=== PATIENT | male | born 1940 | race Caucasian/White ===

== ENCOUNTER 2016-11-08 10:51 | Emergency (ER) | payer MEDICARE, BC ==
[~2016-11-08 10:51] MED LIST: AMLODIPINE5 MG PO; BISOPROLOL AND1 TA1 PO; ENALAPRIL MALEA20 MG PO; GOOD SENSE ASPI81 M1 PO; HCTZ PO; LEVAQUIN 5500 MG/TA1 PO; LEVOTHYROXIN0.075 MG PO; OMNICEF 300MG300 MG PO; PRAVASTATIN40 MG PO; PREDNISONE10 MG PO; ZITHROMAX Z PA250 MG PO; ZYRTEC10 M3 PO
[2016-11-08] MEDS ORDERED: AMBIEN10 MG PO (11:00)
== END 2016-11-08 15:10 | disposition home or self-care (01) ==
LOC: ED 10:51
DX: R55 Syncope and collapse (principal); R07.9 Chest pain, unspecified; Z95.0 Presence of cardiac pacemaker; I25.10 Atherosclerotic heart disease of native coronary artery without angina pectoris; I10 Essential (primary) hypertension; E78.5 Hyperlipidemia, unspecified; Z79.82 Long term (current) use of aspirin
CPT/HCPCS: J2060; J7030; Q9967

== ENCOUNTER → 2017-04-19 | Outpatient (CLI) | payer MEDICARE, BC ==
[2016-11-08 15:10] VITALS: BP 154/78
[~2017-04-19] MED LIST changes: +AMBIEN10 MG PO
== END ==
LOC: LAB 11:08
DX: I10 Essential (primary) hypertension (principal); E78.2 Mixed hyperlipidemia; R20.2 Paresthesia of skin; Z12.5 Encounter for screening for malignant neoplasm of prostate; E03.4 Atrophy of thyroid (acquired); N52.03 Combined arterial insufficiency and corporo-venous occlusive erectile dysfunction; Z12.11 Encounter for screening for malignant neoplasm of colon; R41.3 Other amnesia

== ENCOUNTER → 2018-04-18 | Outpatient (CLI) | payer MEDICARE, BC ==
[2016-11-08 15:10] VITALS: BP 154/78
[2018-04-18 09:38] LABS: EOS # 0.2 (0.04-0.40); EOS % 3.2 % (0.0-4.0); HEMATOCRIT 40.1 % (42.0-52.0); HEMOGLOBIN 13.4 g/dL (13.5-18.0); LYMPH# 1.8 (1.50-4.00); MEAN CELL VOLUME 94 fl (78-100); MEAN CORPUSCULAR HEMOGLOBIN 32 pg (27-31); MEAN CORPUSCULAR HGB CONC 33 g/dL (33-37); MEAN PLATELET VOLUME 10.8 fl (7.4-10.4); MONO # 0.8 (0.20-0.80); NEU # 3.8 (1.40-6.50); PLATELET COUNT 190 K/mm3 (130-400); RED BLOOD COUNT 4.26 M/mm3 (4.20-5.60); RED CELL DISTRIBUTION WIDTH 14.3 % (11.5-14.5); WHITE BLOOD COUNT 6.7 K/mm3 (4.8-10.8)
[2018-04-18 09:56] LABS: ALBUMIN 4.1 g/dL (3.5-5.0); CALCIUM 9.1 mg/dL (8.4-10.2); POTASSIUM 3.9 mmol/L (3.6-5.0); TOTAL BILIRUBIN 1.3 mg/dL (0.2-1.3); TOTAL PROTEIN 7.1 g/dL (6.3-8.2)
[2018-04-18 11:12] LABS: ERYTHROCYTE SEDIMENTATION RATE 3 mm/hr (0-20)
[2018-04-18 23:59] LABS: TESTOSTERONE 478 ng/dL (221-716)
== END ==
LOC: LAB 09:22
PROVIDERS: Internal Medicine
DX: Z12.5 Encounter for screening for malignant neoplasm of prostate (principal); Z12.11 Encounter for screening for malignant neoplasm of colon; N52.9 Male erectile dysfunction, unspecified; I10 Essential (primary) hypertension; E78.5 Hyperlipidemia, unspecified; R20.2 Paresthesia of skin; E03.9 Hypothyroidism, unspecified

== ENCOUNTER → 2018-08-21 | Outpatient (CLI) | payer MEDICARE, BC ==
[2016-11-08 15:10] VITALS: BP 154/78
== END ==
LOC: LAB 10:03
DX: E03.9 Hypothyroidism, unspecified (principal)

== ENCOUNTER → 2019-02-19 | Outpatient (CLI) | payer MEDICARE, BC ==
[2016-11-08 15:10] VITALS: BP 154/78
[2019-02-19 12:10] LABS: EOS # 0.2 (0.04-0.40); EOS % 3.2 % (0.0-4.0); HEMATOCRIT 40.1 % (42.0-52.0); HEMOGLOBIN 13.3 g/dL (13.5-18.0); LYMPH# 1.6 (1.50-4.00); MEAN CELL VOLUME 93 fl (78-100); MEAN CORPUSCULAR HEMOGLOBIN 31 pg (27-31); MEAN CORPUSCULAR HGB CONC 33 g/dL (33-37); MEAN PLATELET VOLUME 11.1 fl (7.4-10.4); MONO # 0.8 (0.20-0.80); PLATELET COUNT 178 K/mm3 (130-400); RED BLOOD COUNT 4.33 M/mm3 (4.20-5.60); RED CELL DISTRIBUTION WIDTH 14.4 % (11.5-14.5); WHITE BLOOD COUNT 6.5 K/mm3 (4.8-10.8)
[2019-02-19 12:17] LABS: POTASSIUM 3.7 mmol/L (3.5-5.1)
[2019-02-19 12:18] LABS: ALBUMIN 3.9 g/dL (3.4-4.8)
[2019-02-19 12:19] LABS: CALCIUM 9.3 mg/dL (8.3-10.5)
[2019-02-19 12:20] LABS: TOTAL PROTEIN 6.9 g/dL (6.2-8.1)
[2019-02-19 12:22] LABS: TOTAL BILIRUBIN 1.2 mg/dL (0.2-1.2)
[2019-02-19 13:10] LABS: ERYTHROCYTE SEDIMENTATION RATE 4 mm/hr (0-20)
== END ==
LOC: LAB 11:51
PROVIDERS: Internal Medicine
DX: Z12.11 Encounter for screening for malignant neoplasm of colon (principal); I10 Essential (primary) hypertension; E78.5 Hyperlipidemia, unspecified; E03.9 Hypothyroidism, unspecified; R41.3 Other amnesia

== ENCOUNTER → 2019-08-27 | Outpatient (CLI) | payer MEDICARE, BC ==
[2016-11-08 15:10] VITALS: BP 154/78
[2019-08-27 10:23] LABS: BASO # 0.1 (0.02-0.10); EOS # 0.3 (0.04-0.40); EOS % 3.6 % (0.0-4.0); HEMATOCRIT 41.7 % (42.0-52.0); HEMOGLOBIN 14.1 g/dL (13.5-18.0); MEAN CELL VOLUME 93 fl (78-100); MEAN CORPUSCULAR HEMOGLOBIN 31 pg (27-31); MEAN CORPUSCULAR HGB CONC 34 g/dL (33-37); MEAN PLATELET VOLUME 10.5 fl (7.4-10.4); MONO # 0.9 (0.20-0.80); NEU # 4.8 (1.40-6.50); PLATELET COUNT 218 K/mm3 (130-400); RED BLOOD COUNT 4.49 M/mm3 (4.20-5.60); RED CELL DISTRIBUTION WIDTH 13.8 % (11.5-14.5); WHITE BLOOD COUNT 8.1 K/mm3 (4.8-10.8)
[2019-08-27 10:30] LABS: ALBUMIN 4.2 g/dL (3.4-4.8); POTASSIUM 4.2 mmol/L (3.5-5.1)
[2019-08-27 10:31] LABS: CALCIUM 9.7 mg/dL (8.3-10.5)
[2019-08-27 10:32] LABS: TOTAL PROTEIN 7.3 g/dL (6.2-8.1)
[2019-08-27 10:34] LABS: TOTAL BILIRUBIN 1.1 mg/dL (0.2-1.2)
[2019-08-27 11:36] LABS: ERYTHROCYTE SEDIMENTATION RATE 3 mm/hr (0-20)
== END ==
LOC: LAB 10:06
PROVIDERS: Internal Medicine
DX: I10 Essential (primary) hypertension (principal); E78.5 Hyperlipidemia, unspecified; E03.9 Hypothyroidism, unspecified

== ENCOUNTER → 2021-03-24 | Outpatient (CLI) | payer MEDICARE, BC ==
[2021-03-24 15:17] LABS: BASO # 0.05 (0.02-0.10); EOS # 0.24 (0.04-0.40); EOS % 3.8 % (0.0-4.0); HEMATOCRIT 41.1 % (42.0-52.0); HEMOGLOBIN 14.1 g/dL (13.5-18.0); LYMPH# 1.68 (1.50-4.00); MEAN CELL VOLUME 93 fl (78-100); MEAN CORPUSCULAR HEMOGLOBIN 32 pg (27-31); MEAN CORPUSCULAR HGB CONC 34 g/dL (33-37); MEAN PLATELET VOLUME 10.1 fl (7.4-10.4); MONO # 0.82 (0.20-0.80); NEU # 3.55 (1.40-6.50); PLATELET COUNT 191 K/mm3 (130-400); RED BLOOD COUNT 4.42 M/mm3 (4.20-5.60); RED CELL DISTRIBUTION WIDTH 13.6 % (11.5-14.5); WHITE BLOOD COUNT 6.4 K/mm3 (4.8-10.8)
[2021-03-24 15:32] LABS: ALBUMIN 4.2 g/dL (3.4-4.8)
[2021-03-24 15:33] LABS: CALCIUM 9.7 mg/dL (8.3-10.5)
[2021-03-24 15:35] LABS: TOTAL PROTEIN 7.5 g/dL (6.2-8.1)
[2021-03-24 15:37] LABS: TOTAL BILIRUBIN 1.5 mg/dL (0.2-1.2)
== END ==
LOC: LAB 14:52
PROVIDERS: Internal Medicine
DX: E03.4 Atrophy of thyroid (acquired) (principal); K90.9 Intestinal malabsorption, unspecified; E78.2 Mixed hyperlipidemia; I10 Essential (primary) hypertension

== ENCOUNTER → 2021-07-23 | Outpatient (CLI) | payer MEDICARE, BC ==
[2021-07-23 10:26] LABS: BASO # 0.06 K/mm3 (0.02-0.10); EOS # 0.17 K/mm3 (0.04-0.40); HEMATOCRIT 36.8 % (42.0-52.0); HEMOGLOBIN 12.5 g/dL (13.5-18.0); LYMPH# 1.35 K/mm3 (1.50-4.00); MEAN CELL VOLUME 95 fl (78-100); MEAN CORPUSCULAR HEMOGLOBIN 32 pg (27-31); MEAN CORPUSCULAR HGB CONC 34 g/dL (33-37); MONO # 0.69 K/mm3 (0.20-0.80); NEU # 3.46 K/mm3 (1.40-6.50); PLATELET COUNT 216 K/mm3 (130-400); RED BLOOD COUNT 3.89 M/mm3 (4.20-5.60); RED CELL DISTRIBUTION WIDTH 13.4 % (11.5-14.5); WHITE BLOOD COUNT 5.7 K/mm3 (4.8-10.8)
[2021-07-23 10:46] LABS: POTASSIUM 3.7 mmol/L (3.5-5.1)
[2021-07-23 10:47] LABS: CALCIUM 9.2 mg/dL (8.3-10.5)
[2021-07-23 10:48] LABS: TOTAL PROTEIN 7.1 g/dL (6.2-8.1)
[2021-07-23 10:50] LABS: TOTAL BILIRUBIN 1.4 mg/dL (0.2-1.2)
== END ==
LOC: LAB 10:07
PROVIDERS: Internal Medicine
DX: Z12.5 Encounter for screening for malignant neoplasm of prostate (principal); I10 Essential (primary) hypertension; E03.4 Atrophy of thyroid (acquired); K90.9 Intestinal malabsorption, unspecified

== ENCOUNTER → 2021-10-06 | Outpatient (CLI) | payer MEDICARE, BC ==
[2021-10-06 11:08] LABS: PROTHROMBIN TIME 31.1 SECONDS (9.0-12.0)
== END ==
LOC: LAB 08:58
PROVIDERS: Internal Medicine Cardiovascular Disease
DX: Z51.81 Encounter for therapeutic drug level monitoring (principal); I48.0 Paroxysmal atrial fibrillation; Z79.01 Long term (current) use of anticoagulants

== ENCOUNTER → 2021-10-12 | Outpatient (CLI) | payer MEDICARE, BC ==
[2021-10-12 13:00] LABS: PROTHROMBIN TIME 57.8 SECONDS (9.0-12.0)
== END ==
LOC: LAB 08:35
PROVIDERS: Internal Medicine Cardiovascular Disease
DX: Z51.81 Encounter for therapeutic drug level monitoring (principal); I48.0 Paroxysmal atrial fibrillation; K90.9 Intestinal malabsorption, unspecified; Z79.01 Long term (current) use of anticoagulants

== ENCOUNTER → 2021-10-19 | Outpatient (CLI) | payer MEDICARE, BC ==
[2021-10-19 10:36] LABS: PROTHROMBIN TIME 18.2 SECONDS (9.0-12.0)
== END ==
LOC: LAB 08:45
PROVIDERS: Internal Medicine Cardiovascular Disease
DX: Z51.81 Encounter for therapeutic drug level monitoring (principal); Z79.01 Long term (current) use of anticoagulants

== ENCOUNTER → 2021-10-26 | Outpatient (CLI) | payer MEDICARE, BC | LOC: LAB 09:48 | PROVIDERS: Internal Medicine Cardiovascular Disease | DX: K90.9 Intestinal malabsorption, unspecified (principal) ==

== ENCOUNTER → 2021-11-02 | Outpatient (CLI) | payer MEDICARE, BC | LOC: LAB 10:02 | PROVIDERS: Internal Medicine Cardiovascular Disease | DX: K90.9 Intestinal malabsorption, unspecified (principal) ==

== ENCOUNTER → 2021-11-30 | Outpatient (CLI) | payer MEDICARE, BC ==
[2021-11-30 13:49] LABS: PROTHROMBIN TIME 67.4 SECONDS (9.0-12.0)
== END ==
LOC: LAB 09:53
PROVIDERS: Internal Medicine Cardiovascular Disease
DX: Z51.81 Encounter for therapeutic drug level monitoring (principal); Z79.01 Long term (current) use of anticoagulants

== ENCOUNTER → 2021-12-07 | Outpatient (CLI) | payer MEDICARE, BC ==
[2021-12-07 11:40] LABS: PROTHROMBIN TIME 40.9 SECONDS (9.0-12.0)
== END ==
LOC: LAB 09:02
PROVIDERS: Internal Medicine Cardiovascular Disease
DX: K90.9 Intestinal malabsorption, unspecified (principal)

== ENCOUNTER → 2021-12-15 | Outpatient (CLI) | payer MEDICARE, BC ==
[2021-12-15 10:01] LABS: PROTHROMBIN TIME 12.9 SECONDS (9.0-12.0)
== END ==
LOC: LAB 08:41
PROVIDERS: Internal Medicine Cardiovascular Disease
DX: K90.9 Intestinal malabsorption, unspecified (principal)

== ENCOUNTER → 2021-12-21 | Outpatient (CLI) | payer MEDICARE, BC ==
[2021-12-21 09:32] LABS: PROTHROMBIN TIME 13.6 SECONDS (9.0-12.0)
== END ==
LOC: LAB 08:30
PROVIDERS: Internal Medicine Cardiovascular Disease
DX: K90.9 Intestinal malabsorption, unspecified (principal)

== ENCOUNTER → 2021-12-28 | Outpatient (CLI) | payer MEDICARE, BC | LOC: LAB 09:22 | PROVIDERS: Internal Medicine Cardiovascular Disease | DX: K90.9 Intestinal malabsorption, unspecified (principal) ==

== ENCOUNTER → 2022-01-04 | Outpatient (CLI) | payer MEDICARE, BC ==
[2022-01-04 13:40] LABS: PROTHROMBIN TIME 18.1 SECONDS (9.0-12.0)
== END ==
LOC: LAB 09:56
PROVIDERS: Internal Medicine Cardiovascular Disease
DX: K90.9 Intestinal malabsorption, unspecified (principal)

== ENCOUNTER → 2022-03-22 | Outpatient (CLI) | payer MEDICARE, BC ==
[2022-03-22 11:08] LABS: BASO # 0.05 K/mm3 (0.02-0.10); EOS # 0.16 K/mm3 (0.04-0.40); EOS % 2.7 % (0.0-4.0); HEMATOCRIT 39.7 % (42.0-52.0); HEMOGLOBIN 13.2 g/dL (13.5-18.0); LYMPH# 1.62 K/mm3 (1.50-4.00); MEAN CELL VOLUME 94 fl (78-100); MEAN CORPUSCULAR HEMOGLOBIN 31 pg (27-31); MEAN CORPUSCULAR HGB CONC 33 g/dL (33-37); MEAN PLATELET VOLUME 10.5 fl (7.4-10.4); MONO # 0.81 K/mm3 (0.20-0.80); NEU # 3.22 K/mm3 (1.40-6.50); PLATELET COUNT 197 K/mm3 (130-400); RED BLOOD COUNT 4.22 M/mm3 (4.20-5.60); RED CELL DISTRIBUTION WIDTH 13.4 % (11.5-14.5); WHITE BLOOD COUNT 5.9 K/mm3 (4.8-10.8)
[2022-03-22 11:12] LABS: CALCIUM 9.5 mg/dL (8.3-10.5)
[2022-03-22 11:13] LABS: TOTAL PROTEIN 6.7 g/dL (6.2-8.1)
[2022-03-22 11:20] LABS: MAGNESIUM 1.51 mg/dL (1.60-2.60)
== END ==
LOC: LAB 09:28
PROVIDERS: Internal Medicine Cardiovascular Disease
DX: K90.9 Intestinal malabsorption, unspecified (principal); E03.4 Atrophy of thyroid (acquired); I10 Essential (primary) hypertension; E78.2 Mixed hyperlipidemia; E55.9 Vitamin D deficiency, unspecified; F41.1 Generalized anxiety disorder; K64.9 Unspecified hemorrhoids; N48.1 Balanitis